=== PATIENT | female | born 1955 ===

== ENCOUNTER → 2018-11-23 | Outpatient (CLI) | payer BC ==
[~2018-11-23] MED LIST: CRUTCH3 USE; HYDACE5 PO; [UNRECOGNIZED DRUG - REMARK]
== END ==
LOC: LAB SHORT 11:54 → PLD 11:54
DX: D48.5 Neoplasm of uncertain behavior of skin (principal)
CPT/HCPCS: 88305

== ENCOUNTER → 2018-12-07 | Outpatient (CLI) | payer BC | END | disposition home or self-care (01) | LOC: PLD 14:27 → LAB SHORT 14:27 | DX: C44.612 Basal cell carcinoma of skin of right upper limb, including shoulder (principal) | CPT/HCPCS: 88305 ==